=== PATIENT | female | born 1995 ===

== ENCOUNTER 2016-06-02 09:09 | Emergency (ER) | payer OTHER ==
[2016-06-02 09:09] VITALS: BMI 24.0
[2016-06-02 09:22] VITALS: BP 100/69; PULSE 80; RESP 18; TEMP 97.3; O2SAT 100
--- NOTE | 2016-06-02 09:36 | ED PDOC ---
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 Jerked back so has pain to the low back. Also pain to the left foot, left ankle, and lower calf. Pain on walking on it. Happened yesterday. No numbness, tingles, weakness. No incontinence or constipation. No abd pain. No dysuria. Did not hit head. Past Medical History Reviewed: Nursing Documentation, Vital Signs Vital Signs: Last Vital Signs Temp 97.3 F L 06/02/16 09:16 Pulse 80 06/02/16 09:16 Resp 18 06/02/16 09:16 BP 100/69 06/02/16 09:16 Pulse Ox 100 06/02/16 09:16 - Medical History PMH: Hyperthyroidism Other PMH: fracture left foot - Surgical History Surgical History: No Surg Hx - Family History Family History: States: Unknown Family Hx - Living Arrangements Living Arrangements: With Family - Social History Current smoker - smoking cessation education provided: No Alcohol: None Drugs: Denies - Home Medications Home Medications: Ambulatory Orders Medication Instructions Recorded Ibuprofen [Motrin] 600 mg PO TID 7 Days 06/02/16 - Allergies Allergies/Adverse Reactions: Allergies Allergy/AdvReac Type Severity Reaction Status Date / Time No Known Allergies Allergy Verified 12/09/15 10:57 Review of Systems Constitutional: Negative for: Weakness ENT: Negative for: Nose Pain, Throat Pain Cardiovascular: Negative for: Chest Pain Respiratory: Negative for: Shortness of Breath Gastrointestinal: Negative for: Nausea, Vomiting, Abdominal Pain Musculoskeletal: Positive for: Leg Pain, Foot Pain. Negative for: Neck Pain, Shoulder Pain, Arm Pain Neurological: Negative for: Weakness, Numbness Physical Exam - Reviewed Nursing Documentation Reviewed: Yes Vital Signs Reviewed: Yes - Physical Exam Appears: Positive for: Well, Non-toxic, No Acute Distress Neck: Positive for: Normal, Painless ROM, Supple Cardiovascular/Chest: Positive for: Regular Rate, Rhythm. Negative for: Edema Respiratory: Positive for: CNT, Normal Breath Sounds Pulses-Dorsalis Pedis (L): 2+ Pulses-Post. Tibialis (L): 2+ Gastrointestinal/Abdominal: Positive for: Normal Exam, Soft. Negative for: Tenderness Back: Positive for: Other (mild tender across lower; no deformity; no erythema) Extremity: Positive for: Tenderness (L mid calf down to ankle; no erythema or swelling; left dorsal college football coach mild) Neurologic/Psych: Positive for: Alert, Oriented - ECG O2 Sat by Pulse Oximetry: 100 Pulse Ox Interpretation: Normal - Radiology X-Ray: Interpreted by Me, Viewed By Me, Read By Radiologist X-Ray Interpretation: No Acute Disease - Progress ED Course And Treament: 1119: Stable. AAOx3. Pain free. No back or leg pain. Ambulated with no issues. Fu with pcp. Disposition - Clinical Impression Clinical Impression: Low back strain, Foot pain - Patient ED Disposition Is Patient to be Admitted: No Counseled Patient/Family Regarding: Studies Performed, Diagnosis, Need For Followup, Rx Given - Disposition Referrals: [facility] [Outside] - 06/03/16 Disposition: Routine/Home Disposition Time: 11:19 Condition: STABLE Additional Instructions: Return if not better in 3 days. Prescriptions: Ibuprofen [Motrin] 600 mg PO TID 7 Days Instructions: Foot Sprain (ED), Acute Low Back Pain (ED), Muscle Strain (ED) Forms: [facility] ED School/Work Excuse
--- NOTE | 2016-06-02 10:56 | RAD ---
PROCEDURE: Left Ankle Radiographs. HISTORY: fall and pain COMPARISON: Comparison is made to the previous study dated 01/27/2012 FINDINGS: BONES: No definite evidence of acute fracture. JOINTS: Normal. No osteoarthritis. Ankle mortise maintained. Talar dome intact SOFT TISSUES: Small soft tissue calcification/ small ossicles seen plantar to the proximal talar bones which appears more conspicuous compared to the previous study. OTHER FINDINGS: None. IMPRESSION: No evidence of acute fracture or dislocation.
--- NOTE | 2016-06-02 11:00 | RAD ---
PROCEDURE: X-ray of the left tibia and fibula HISTORY: pain COMPARISON: No prior similar study available for comparison. TECHNIQUE: AP and lateral views of the left tibia and fibula were obtained. FINDINGS: No evidence of acute fracture. No evidence of dislocation at the left knee and left ankle. No evidence of destructive bony lesion. IMPRESSION: No radiographic evidence of acute pathology at the left tibia and fibula.
--- NOTE | 2016-06-02 11:01 | RAD ---
PROCEDURE: Left Foot Radiographs. HISTORY: pain COMPARISON: None. FINDINGS: BONES: Normal. No fracture. JOINTS: Normal. SOFT TISSUES: Normal. OTHER FINDINGS: None. IMPRESSION: No evidence of acute fracture or dislocation.
== END 2016-06-02 11:43 | disposition home or self-care (01) ==
LOC: H.ER 09:09
DX: M79.672 Pain in left foot (principal); M25.572 Pain in left ankle and joints of left foot; M54.5 Low back pain

== ENCOUNTER 2016-12-09 21:48 | Emergency (ER) | payer OTHER ==
[2016-12-09 21:48] VITALS: BMI 24.0
[2016-12-09 21:59] VITALS: BP 121/79; PULSE 89; RESP 16; TEMP 97.5; O2SAT 98
[2016-12-09] MEDS ORDERED: Sodium Chloride 0.9% 1,000 ML IV STA (22:35)
--- NOTE | 2016-12-09 22:57 | ED PDOC ---
HPI: Female Pain Time Seen by Provider: 12/09/16 22:04 Chief Complaint (Nursing): Female Genitourinary Chief Complaint (Provider): vaginal bleeding History Per: Patient History/Exam Limitations: no limitations Onset/Duration Of Symptoms: Days (30) Current Symptoms Are (Timing): Still Present Quality Of Discomfort: Cramping Additional History Per: Patient Additional Complaint(s): 21 y/o female presents with vaginal bleeding x 1 month. Patient states bleeding started after taking pills for elective for an approximate 4- 5 week . Patient states bleeding has not stopped since then, using approx 4-5 pads daily. Associated pelvic cramping x 1 week. Patient states she feels generally weak, today while at work felt like she was going to pass out. Denies fever, headache, dizziness, nausea/vomiting, chest pain, shortness of breath, palpitations, changes in bowel movements, urinary symptoms. Past Medical History Reviewed: Historical Data, Nursing Documentation, Vital Signs Vital Signs: Last Vital Signs Temp 97.5 F L 12/09/16 21:55 Pulse 89 12/09/16 21:55 Resp 16 12/09/16 21:55 BP 121/79 12/09/16 21:55 Pulse Ox 98 12/09/16 21:55 - Medical History PMH: Hyperthyroidism, Hypothyroidism - Surgical History Surgical History: No Surg Hx - Family History Family History: States: No Known Family Hx - Living Arrangements Living Arrangements: Alone - Home Medications Home Medications: Ambulatory Orders Medication Instructions Recorded Ibuprofen [Motrin] 600 mg PO TID 7 Days tab 06/02/16 - Allergies Allergies/Adverse Reactions: Allergies Allergy/AdvReac Type Severity Reaction Status Date / Time No Known Allergies Allergy Verified 12/09/16 21:55 Review of Systems ROS Statement: Except As Marked, All Systems Reviewed And Found Negative Genitourinary Female: Positive for: Vaginal Bleeding, Pelvic Pain Physical Exam - Reviewed Nursing Documentation Reviewed: Yes Vital Signs Reviewed: Yes - Physical Exam Appears: Positive for: Well, Non-toxic, No Acute Distress Head Exam: Positive for: ATRAUMATIC, NORMAL INSPECTION, NORMOCEPHALIC Skin: Positive for: Normal Color Eye Exam: Positive for: Normal appearance ENT: Positive for: Normal ENT Inspection Cardiovascular/Chest: Positive for: Regular Rate, Rhythm Respiratory: Positive for: Normal Breath Sounds Gastrointestinal/Abdominal: Positive for: Normal Exam Pelvic Exam: Positive for: External Exam Normal, No Cerv. Motion Tender, Active Bleeding (minimal; cervix closed), Other (exam chaperoned by Patricia FUNG) Back: Positive for: Normal Inspection Extremity: Positive for: Normal ROM Neurologic/Psych: Positive for: Alert, Oriented - Laboratory Results Result Diagrams: 12/09/16 23:26 12/09/16 23:26 - ECG O2 Sat by Pulse Oximetry: 98 - Progress ED Course And Treament: labs, urine, TV u/s EXAM: US Pelvis, Transvaginal CLINICAL HISTORY: 21 years old, female; Signs and symptoms; Menstruation abnormalities; Excessive menstruation; Other: S/P termination of preg. X 4-5 weeks; Additional info: Vaginal bleeding, cramping S/P x 1 month TECHNIQUE: Real-time transvaginal pelvic ultrasound (complete) with image documentation. Transvaginal imaging was used for better evaluation of the endometrium and adnexa. COMPARISON: No relevant prior studies available. FINDINGS: Uterus/cervix: Uterus measures 8.0 x 4.4 x 5.4 cm in size. No myometrial mass. Endometrium: Up to 1.1 cm in thickness, heterogeneous. 1.0 x 0.7 x 0.8 cm hyperechoic focus with increased vascularity. Right ovary: 2.5 x 2.1 x 2.9 cm in size. No mass. Small follicles. Normal flow. Left ovary: 2.4 x 1.1 x 1.2 cm in size. No mass. Small follicles. Normal flow. Free fluid: No significant free fluid. Bladder: Empty bladder which cannot be evaluated with this probe. IMPRESSION: 1. Thickened, heterogeneous endometrium with hypervascular echogenic focus. Findings concerning for retained products of conception. Clinical correlation is needed. Given beta of 20.31, unlikely retained products. Patient educated on findings, stressed importance of biomedical equipment specialist follow up within 2- 3 days for follow up. Return to ED for worsening/concerning symptoms. Disposition - Clinical Impression Clinical Impression: Vaginal bleeding - Patient ED Disposition Is Patient to be Admitted: No Counseled Patient/Family Regarding: Studies Performed, Diagnosis, Need For Followup - Disposition [facility] Disposition: Routine/Home Disposition Time: 00:05 Condition: STABLE Additional Instructions: Follow up with Order Desk Clerk in 2-3 days. Return to ED for worsening/concerning symptoms. Instructions: Dysfunctional Uterine Bleeding (ED)
[2016-12-09 23:17] LABS: RBC URINE 7 /hpf (0-3); URINE BILIRUBIN NEGATIVE (NEGATIVE); URINE BLOOD LARGE (NEGATIVE); URINE COLOR YELLOW (YELLOW); URINE GLUCOSE (UA) NEG (Normal); URINE KETONE NEGATIVE (NEGATIVE); URINE LEUKOCYTE ESTERASE NEG Leu/uL (Negative); URINE PROTEIN 100 mg/dL (NEGATIVE); URINE UROBILINOGEN 0.2-1.0 mg/dL (0.2-1.0); WBC URINE 5 /hpf (0-5)
[2016-12-09 23:41] LABS: ALB/GLOB RATIO 1.2 (1.0-2.1); ALKALINE PHOSPHATASE 74 U/L (38-126); ALT/SGPT 23 U/L (9-52); AST/SGOT 24 U/L (14-36); BILIRUBIN,TOTAL 0.1 mg/dl (0.2-1.3); BLOOD UREA NITROGEN 7 mg/dl (7-17); CALCIUM 9.2 mg/dL (8.4-10.2); CARBON DIOXIDE 26 mmol/L (22-30); CHLORIDE 106 mmol/L (98-107); GFR AFRICAN-AMERICAN > 60; GLUCOSE,RANDOM 98 mg/dL (65-105); POTASSIUM 3.7 MMOL/L (3.6-5.0); SODIUM 142 mmol/l (132-148); TOTAL PROTEIN 7.6 G/DL (6.3-8.2)
--- NOTE | 2016-12-09 23:41 | US ---
EXAM: US Pelvis, Transvaginal CLINICAL HISTORY: 21 years old, female; Signs and symptoms; Menstruation abnormalities; Excessive menstruation; Other: S/P termination of preg. X 4-5 weeks; Additional info: Vaginal bleeding, cramping S/P x 1 month TECHNIQUE: Real-time transvaginal pelvic ultrasound (complete) with image documentation. Transvaginal imaging was used for better evaluation of the endometrium and adnexa. COMPARISON: No relevant prior studies available. FINDINGS: Uterus/cervix: Uterus measures 8.0 x 4.4 x 5.4 cm in size. No myometrial mass. Endometrium: Up to 1.1 cm in thickness, heterogeneous. 1.0 x 0.7 x 0.8 cm hyperechoic focus with increased vascularity. Right ovary: 2.5 x 2.1 x 2.9 cm in size. No mass. Small follicles. Normal flow. Left ovary: 2.4 x 1.1 x 1.2 cm in size. No mass. Small follicles. Normal flow. Free fluid: No significant free fluid. Bladder: Empty bladder which cannot be evaluated with this probe. IMPRESSION: 1. Thickened, heterogeneous endometrium with hypervascular echogenic focus. Findings concerning for retained products of conception. Clinical correlation is needed.
[2016-12-09 23:47] LABS: BASO % 0.4 % (0.0-2.0); EOS # 0.2 K/uL (0.0-0.7); EOS % 1.7 % (0.0-4.0); HEMATOCRIT 37.1 % (34.0-47.0); LYMPH # 3.6 K/uL (1.0-4.3); LYMPH % 38.8 % (20.0-40.0); MEAN CELL VOLUME 91.3 fl (81.0-99.0); MEAN CORPUSCULAR HEMOGLOBIN 30.9 pg (27.0-31.0); MEAN CORPUSCULAR HGB CONC 33.8 g/dL (33.0-37.0); MEAN PLATELET VOLUME 8.9 fl (7.2-11.7); MONO # 0.5 K/uL (0.0-0.8); NEUT % 54.1 % (50.0-75.0); NRBC % 0.1 % (0.0-0.0); RED CELL DISTRIBUTION WIDTH 12.9 % (11.5-14.5); WHITE BLOOD COUNT 9.3 K/uL (4.8-10.8)
== END 2016-12-10 00:30 | disposition home or self-care (01) ==
LOC: H.ER 21:48
DX: N92.0 Excessive and frequent menstruation with regular cycle (principal)
CPT/HCPCS: 76830; 80053; 81003; 81025; 84702; 85025; 99283; J7040